=== PATIENT | female | born 1985 | race Two or more races ===

== ENCOUNTER 2016-12-05 13:51 | Inpatient (IN) | payer SELFPAY ==
[2016-12-05] MEDS ORDERED: D5 1/2 NS 1000ML W PITOCIN 20 U/L 1,000 ML IV ONE (13:57)
[2016-12-05] MEDS ORDERED: PITOCIN ONE (13:57)
[2016-12-05] MEDS ORDERED: D5LR 1000ML W PITOCIN 10 U/L 1,000 ML IV ONE (13:57)
[2016-12-05] MEDS ORDERED: D5 1/2 NS 1000 ML 1,000 ML IV ONE (13:57)
[2016-12-05 14:15] LABS: AMNISURE ROM TEST NO MEMBRANES RUPTURE (NO RUPTURE)
[2016-12-05 14:20] LABS: BILIRUBIN,URINE NEGATIVE (NEGATIVE); BLOOD/HEMOGLOBIN,URINE 1+ (NEGATIVE); GLUCOSE, URINE NEGATIVE (NEGATIVE); KETONES,URINE NEGATIVE (NEGATIVE); LEUKOCYTE ESTERASE ,URINE 2+ (NEGATIVE); NITRITES,URINE NEGATIVE (NEGATIVE); PROTEIN,URINE 1+ (NEGATIVE); UROBILINOGEN,URINE NORMAL (NORMAL)
[2016-12-05 14:32] LABS: APPEARANCE,URINE HAZY (CLEAR); BACTERIA,URINE 2+ /HPF (NEGATIVE); COLOR,URINE YELLOW (YELLOW); RBC,URINE 0-2 /HPF (NEGATIVE); SQUAMOUS EPITHELIAL CELL,UR MODERATE /HPF (NEGATIVE)
[2016-12-05 14:44] LABS: BASOPHILS # (AUTO) 0.1 X10^3/uL (0.0-0.1); EOSINOPHILS # (AUTO) 0.2 x10^3/uL (0.0-0.2); EOSINOPHILS % (AUTO) 2.1 % (0.9-2.9); HEMATOCRIT 35.8 % (36.0-47.0); HEMOGLOBIN 11.9 g/dL (12.0-16.0); LYMPHOCYTES # (AUTO) 2.1 X10^3/uL (1.3-2.9); LYMPHOCYTES % (AUTO) 26.6 % (21.0-51.0); MEAN CORPUSCULAR HEMOGLOBIN 27.4 pg (27.0-34.0); MEAN CORPUSCULAR HGB CONC 33.3 g/dL (33.0-35.0); MEAN CORPUSCULAR VOLUME 82.2 fL (80.0-100.0); MEAN PLATELET VOLUME 8.9 fL (7.4-11.0); MONOCYTES # (AUTO) 0.6 x10^3/uL (0.3-0.8); MONOCYTES % (AUTO) 8.1 % (0.0-13.0); NEUTROPHILS # (AUTO) 4.8 x10^3/uL (2.2-4.8); NEUTROPHILS % (AUTO) 62.2 % (42.0-75.0); PLATELET COUNT 216 X10^3/uL (150.0-450.0); RED BLOOD COUNT 4.36 X10^6/uL (3.5-5.4); RED CELL DISTRIBUTION WIDTH 14.5 % (11.6-16.5); WHITE BLOOD COUNT 7.8 X10^3/uL (3.6-10.0)
[2016-12-05 14:56] LABS: ALANINE AMINOTRANSFERASE 13 Units/L (12-78); ALBUMIN 2.6 g/dL (3.4-5.0); ALKALINE PHOSPHATASE 143 Units/L (46-116); ASPARTATE AMINO TRANSFERASE 15 Units/L (15-37); BLOOD UREA NITROGEN 9 mg/dL (7-18); CALCIUM 8.6 mg/dL (8.5-10.1); CARBON DIOXIDE 20.2 mmol/L (21-32); CHLORIDE 103 mmol/L (98-107); COR CA(FOR HYPOALB) 9.7 mg/dL (8.5-10.1); CREATININE 0.68 mg/dL (0.55-1.02); GLUCOSE 87 mg/dL (65-99); SODIUM 137 mmol/L (136-145); eGFR BLACK RACES > 60 (>60); eGFR NON BLACK RACES > 60 (>60)
[2016-12-06] MEDS: LR 1000 ML IV 1,000 ML IV SCH ×4 (00:11→08:00)
[2016-12-06] MEDS ORDERED: D5LR 1000ML W PITOCIN 10 U/L 1,000 ML IV ONE (07:10)
[2016-12-06] MEDS ORDERED: LR 1000 ML IV 1,000 ML IV ONE (07:10)
[2016-12-06] MEDS ORDERED: REGLAN INJ 10 MG VIAL IVP PRN (08:04)
[2016-12-06] MEDS ORDERED: NUBAIN INJ 200 MG VIAL MULTIDOSE IVP PRN (08:04)
[2016-12-06] MEDS ORDERED: MORPHINE SULFATE INJ 2 MG IVP PRN (08:04)
[2016-12-06] MEDS ORDERED: PITOCIN IVP ONE (08:04)
[2016-12-06] MEDS ORDERED: PHENERGAN INJ 25 MG IV PRN ×2 (08:04→18:59)
[2016-12-06] MEDS ORDERED: DILAUDID INJ IVP PRN (08:04)
[2016-12-06] MEDS ORDERED: PITOCIN 10 UNITS in D5 LR 1000 ML 1,000 ML IV PRN (08:04)
--- NOTE | 2016-12-06 09:24 | US ---
Limited obstetric ultrasound with biophysical profile Indication: patient, low fluid level. History of multiple previous ultrasounds in the physi dee's office. Comparison: None available Technique: Sonographic images of the pelvis were obtained with focused evaluation of the fetus. Findings: The informix developer noted technical limitations of the exam due to patient body habitus. A viable single intrauterine is identified with heart tones of 140-166 beats per min eyak. A cephalic presentation is observed with a posterior and fundal placenta. MEETA of 7.8 cm was aries sured. The bladder, kidneys, stomach, nose/lips, spine, diaphragm, three-vessel cord, umbilical insertion, and 4 chamber heart were observed. The biophysical profile score is 4/8, with a score of 0 for tone and gross body movement and 2 for respiration and fluid volume. Value Estimated Gestational Age BPD 8.51 cm 34 weeks, 2 days HC 32.62 cm 37 weeks, 0 days AC 35.08 cm 39 weeks, 0 days FL 7.22 cm 37 weeks, 0 days The estimated weight is 3289 g (76th percentile). The estimated gestational age is 36 weeks, 6 days. IMPRESSION: A viable single intrauterine with an average ultrasound age of 36 weeks, 6 days correspond to an estimated date of delivery of 12/27/2016. Biophysical profile score of 4/8 secondary to no significant tone or gross body movement obser haider. Reported By:
[2016-12-06] MEDS ORDERED: NUBAIN INJ 10 ONE (12:44)
[2016-12-06] MEDS: PRENATAL PLUS PO SCH (17:50)
[2016-12-06] MEDS ORDERED: MOTRIN TAB 800 MG PO PRN ×2 (18:59→19:05)
[2016-12-06] MEDS ORDERED: D5 1/2 NS 1000 ML 1,000 ML with PITOCIN 20 UNITS IV SCH ×2 (19:00)
[2016-12-06] MEDS ORDERED: AMBIEN PO PRN (19:05)
[2016-12-06] MEDS ORDERED: ADACEL TDaP IM ONE (19:05)
[2016-12-06] MEDS ORDERED: DERMOPLAST SPRAY TOP PRN (19:05)
[2016-12-06] MEDS ORDERED: MILK OF MAGNESIA PO PRN (19:05)
[2016-12-06] MEDS: ZANTAC PO SCH (20:41)
[2016-12-07 06:09] LABS: HEMATOCRIT 32.8 % (36.0-47.0); HEMOGLOBIN 10.9 g/dL (12.0-16.0)
[2016-12-07] MEDS: ZANTAC PO SCH ×2 (09:26→21:24)
[2016-12-07] MEDS: PRENATAL PLUS PO SCH (09:26)
[2016-12-08] MEDS: PRENATAL PLUS PO SCH (10:08)
[2016-12-08] MEDS: ZANTAC PO SCH (10:08)
[2016-12-08 11:17] VITALS: BP 122/63
== END 2016-12-08 11:45 | disposition home or self-care (01) | DRG 775 ==
LOC: LD 13:51 → MED/SURG 15:54 → LD 12-06 07:46 → MED/SURG 12-06 19:34
PROVIDERS: ADMIT Obstetrics & Gynecology Obstetrics; ATTEND Obstetrics & Gynecology Obstetrics
PROC: 10E0XZZ Delivery of Products of Conception, External Approach (ICD-10-PCS; principal; 2016-12-06)
PROC: 10907ZC Drainage of Amniotic Fluid, Therapeutic from Products of Conception, Via Natural or Artificial Opening (ICD-10-PCS; 2016-12-06)
PROC: 3E033VJ Introduction of Other Hormone into Peripheral Vein, Percutaneous Approach (ICD-10-PCS; 2016-12-06)
PROC: 3E0234Z Introduction of Serum, Toxoid and Vaccine into Muscle, Percutaneous Approach (ICD-10-PCS; 2016-12-06)
DX: O41.03X0 Oligohydramnios, third trimester, not applicable or unspecified (principal); Z37.0 Single live birth; Z3A.38 38 weeks gestation of pregnancy; Z23 Encounter for immunization
CPT/HCPCS: 36415; 59409; 76818; 80053; 81001; 84112; 85014; 85018; 85025; 86592; A4216; A4222; S0197; J2300; J2590; J7042; J7120